=== PATIENT | male | born 2000 | race Caucasian/White ===

== ENCOUNTER 2022-05-25 12:54 | Emergency (ER) | payer OTHER ==
[~2022-05-25] VITALS: Ht 185.4 cm; Wt 95.3 kg
[~2022-05-25 12:54] MED LIST: ESLI200T PO; KEP500 PO
--- NOTE | 2022-05-25 12:54 | NUR ---
BIBA to bed 04. Seizure precautions and cardiac cath lab radiology technologist in place.
[2022-05-25 12:55] VITALS: BP 110/70
--- NOTE | 2022-05-25 13:00 | NUR ---
21 y/o M BIBA from home c/o seizure witnessed full tonic/clonic lasting 1 min. Patient A&Ox4. No oral trauma noted. Patient denies nausea, vomiting, dizziness, headache, head/neck/back pain. Last seizure 1 year ago. EMS BS 115. traffic monitor specialist and seizure precautions in place. Bed locked in lowest position, side rails x 2 for pt safety. PMH: seizures Meds: keppra, aptium NKDA
[2022-05-25] MEDS ORDERED: levETIRAcetam 500 MG TAB PO ONE (13:20)
[2022-05-25 14:19] VITALS: BP 111/64
--- NOTE | 2022-05-25 14:19 | NUR ---
Patient discharged with v/s stable. Written and verbal after care instructions given and explained. Patient verbalized understanding. Ambulatory with steady gait. All questions addressed prior to discharge. Advised to follow up with PMD.
== END 2022-05-25 14:19 | disposition home or self-care (01) ==
LOC: MED 12:54
DX: R56.9 Unspecified convulsions (principal)
CPT/HCPCS: 93005; 99283

== ENCOUNTER 2023-11-11 04:40 | Emergency (ER) | payer OTHER ==
[~2023-11-11] VITALS: Ht 172.7 cm; Wt 79.4 kg
[2023-11-11 04:45] VITALS: BP 129/86; PULSE 86; RESP 16; TEMP 97.3; O2SAT 99
[2023-11-11 05:04] VITALS: TEMP 97.3
[2023-11-11] MEDS ORDERED: IBUP-2213 PO (05:20)
[2023-11-11 05:41] VITALS: BP 129/83; PULSE 75; RESP 16; O2SAT 99
== END 2023-11-11 05:45 | disposition home or self-care (01) ==
LOC: MED 04:40
DX: Z04.1 Encounter for examination and observation following transport accident (principal); R55 Syncope and collapse; R03.0 Elevated blood-pressure reading, without diagnosis of hypertension; Z79.899 Other long term (current) drug therapy; V89.2XXA Person injured in unspecified motor-vehicle accident, traffic, initial encounter; Y93.89 Activity, other specified; Y92.89 Other specified places as the place of occurrence of the external cause; Y99.8 Other external cause status
CPT/HCPCS: 93005; 99283